=== PATIENT | male | born 1950 | race Two or more races ===

== ENCOUNTER 2020-09-28 05:58 | Day surgery (SDC) | payer OTHER ==
[~2020-09-28 05:58] MED LIST: CRESTOR5 MG PO; TAMS0.4C PO
== END 2020-09-28 14:40 | disposition home or self-care (01) ==
LOC: CIR.AMB 05:58
PROVIDERS: ATTEND Urology
DX: C67.3 Malignant neoplasm of anterior wall of bladder (principal); Z20.828 Contact with and (suspected) exposure to other viral communicable diseases